=== PATIENT | male | born 1990 | race African-American/Black ===

== ENCOUNTER 2017-09-04 19:12 | Emergency (ER) | payer MEDICAID, OTHER ==
[~2017-09-04] VITALS: Ht 175.3 cm; Wt 70.3 kg
[2017-09-04 19:33] VITALS: BP 127/89
== END 2017-09-04 22:48 | disposition left against medical advice (07) ==
LOC: ER 19:12 → EDBD 19:12 → ER 22:48
DX: R51 Headache (principal); Z53.21 Procedure and treatment not carried out due to patient leaving prior to being seen by health care provider